=== PATIENT | male | born 1965 | race Caucasian/White ===

== ENCOUNTER 2016-10-28 07:04 | Emergency (ER) | payer BC ==
[~2016-10-28] VITALS: Ht 177.8 cm; Wt 97.7 kg
[~2016-10-28 07:04] MED LIST: CARDIZEM CD180 MG PO; NOHOMEMEDS; PRADAXA150 MG PO
[2016-10-28] MEDS ORDERED: LISINOPRIL10 MG PO (07:24)
[2016-10-28] MEDS ORDERED: NORCO 5/3251 TABLET PO (11:59)
[2016-10-28 12:05] VITALS: BP 152/86
== END 2016-10-28 12:05 | disposition home or self-care (01) ==
LOC: EME 07:04
PROC: 0RSJXZZ Reposition Right Shoulder Joint, External Approach (ICD-10-PCS; principal; 2016-10-28)
DX: S43.004A Unspecified dislocation of right shoulder joint, initial encounter (principal); W00.0XXA Fall on same level due to ice and snow, initial encounter
CPT/HCPCS: 73020; 73030; 73060; 99281; 99285; B4087; J1170